=== PATIENT | female | born 1955 | race Caucasian/White ===

== ENCOUNTER 2016-11-13 19:15 | Emergency (ER) | payer BC ==
[2016-11-13] MEDS ORDERED: KETOROLAC TROMETHAMINE INJ 30 MG/ML VIAL IM ONE (19:39)
[2016-11-13 19:41] VITALS: TEMP 98.2; O2SAT 100
[2016-11-13] MEDS ORDERED: HYDROcodone 7.5MG/APAP 325MG 1 EA TAB PO ONE (19:57)
--- NOTE | 2016-11-13 20:01 | ED.PDOC ---
History of Present Illness - General Chief Complaint: Upper Extremity Injury Stated Complaint: rt shoulder pain Time Seen by Provider: 11/13/16 19:38 Source: patient Exam Limitations: no limitations - History of Present Illness Initial Comments: The patient is a 61-year-old female with a fall from standing after she tripped just immediately prior to arrival. She tried to catch herself with her right arm but failed to. She is not having any pain in her hand, wrist or elbow. All the pain is in the proximal humerus and shoulder. There is no pain over the superior aspect of the shoulder or the clavicle or the scapula. No pain in the neck. She did not hit her head. She is neurovascularly preserved distally. I see no gross deformity and can feel no gross deformity. No other injuries. No previous injuries to that side. Timing/Duration: momentarily Severity: severe Improving Factors: immobilization Worsening Factors: movement Associated Symptoms: denies symptoms Allergies/Adverse Reactions: Allergies Tramadol Allergy (Verified 11/15/14 10:36) Rash Home Medications: Ambulatory Orders Lisinopril 10 mg PO DAILY 11/15/14 Naproxen Sodium [Naproxen Sodium ER] 500 mg PO BID PRN #60 tab 12/02/15 Rosuvastatin Calcium [Crestor] 20 mg PO DAILY 12/02/15 Hhqbirzgaczlo-Ujxo-Tjjutjcjlo [Fioricet] 1 ea PO Q8H PRN #21 tab 11/13/16 Review of Systems - Review of Systems Constitutional: States: no symptoms reported EENTM: States: no symptoms reported Respiratory: States: no symptoms reported Cardiology: States: no symptoms reported Gastrointestinal/Abdominal: States: no symptoms reported Genitourinary: States: no symptoms reported Musculoskeletal: States: see HPI Skin: States: no symptoms reported Neurological: States: no symptoms reported Endocrine: States: no symptoms reported All other Systems: No Change from Baseline Past Medical History (General) - Patient Medical History Hx Seizures: No Hx Stroke: No Hx Dementia: No Hx Asthma: No Hx of COPD: No Hx Cardiac Disorders: No Hx Congestive Heart Failure: No Hx Pacemaker: No Hx Hypertension: Yes Hx Thyroid Disease: No Hx Diabetes: No Hx Gastroesophageal Reflux: No Hx Renal Disease: No Hx Cancer: No Hx of HIV: No Hx Hepatitis C: No Hx MRSA: No Surgical History: cholecystectomy - Vaccination History Hx Tetanus, Diphtheria Vaccination: No Hx Influenza Vaccination: No Hx Pneumococcal Vaccination: No - Social History Hx Tobacco Use: No Hx Alcohol Use: No Hx Substance Use: No Hx Substance Use Treatment: No Hx Depression: No - Female History Patient is a Female of Child Bearing Age (10 -59 yrs old): No Family Medical History - Family History Mother Family History: Unknown Physical Exam - Physical Exam General Appearance: Alert, Obvious distress Eye Exam: bilateral normal Ears, Nose, Throat: normal ENT inspection Neck: full range of motion, supple Respiratory: chest non-tender, no respiratory distress, no accessory muscle use Cardiovascular/Chest: normal peripheral pulses, no edema Peripheral Pulses: radial,right: 2+, radial,left: 2+ Rectal Exam: deferred Back Exam: normal inspection, no CVA tenderness Extremity: no pedal edema, no calf tenderness, normal capillary refill, other - see history of present illness. No lacerations. Neurologic: no motor/sensory deficits, alert, normal mood/affect, oriented x 3 Skin Exam: normal color Comments: Vital Signs - 24 hr 11/13/16 19:37 Temperature 98.2 F Pulse Rate [ 76 Right] Respiratory 16 Rate Blood Pressure 170/102 [Left Arm] O2 Sat by Pulse 100 Oximetry Progress - Progress Progress: 11/13/16 20:01 the patient is a 61-year-old female presenting after a fall with a proximal minimally displaced right proximal humerus fracture. The patient will be placed in a shoulder immobilizer. She needs to follow up with an orthopedist of her choice earlier this week. She will be written for Fioricet for as needed use for pain control. Ibuprofen may help as well. ER warnings were given for any acute worsening. Departure - Departure Clinical Impression: Fracture, humerus, anatomical neck Qualifiers: Encounter type: initial encounter Fracture type: closed Laterality: right Qualifier Code: (S42.291A) Other displaced fracture of upper end of right humerus, initial encounter for closed fracture Disposition: Discharge to Home or Self Care Departure Forms: ED Discharge - Pt. Copy, Patient Portal Self Enrollment Diet: regular diet Activity: no pushing/pulling with affected limb Referrals: KATHLEEN VARGHESE [Primary Care Provider] - 1-2 Weeks Prescriptions: Yiqqfobgjzlhg-Jgzp-Wxxwpvxjry [Fioricet] 1 ea PO Q8H PRN #21 tab PRN Reason: Pain Home Medications: Ambulatory Orders Lisinopril 10 mg PO DAILY 11/15/14 Naproxen Sodium [Naproxen Sodium ER] 500 mg PO BID PRN #60 tab 12/02/15 Rosuvastatin Calcium [Crestor] 20 mg PO DAILY 12/02/15 Twojdgqehglcm-Hhiy-Vhrnziodpx [Fioricet] 1 ea PO Q8H PRN #21 tab 11/13/16 Additional Instructions: the patient is a 61-year-old female presenting after a fall with a proximal minimally displaced right proximal humerus fracture. The patient will be placed in a shoulder immobilizer. She needs to follow up with an orthopedist of her choice earlier this week. She will be written for Fioricet for as needed use for pain control. Ibuprofen may help as well. ER warnings were given for any acute worsening.
[2016-11-13 20:46] VITALS: BP 148/89
--- NOTE | 2016-11-14 15:00 | RAD ---
EXAM DESCRIPTION: Two views of the right shoulder CLINICAL HISTORY: 61 years, Female, pain after fall. COMPARISON: None. FINDINGS: There is a comminuted fracture of the proximal right humerus with fracture lines extending through the lesser tuberosity as well as the greater tuberosity. There is a minimally displaced fracture fragment projecting medially. There is no other acute fracture or dislocation. The glenohumeral articulation is intact. The acromioclavicular joint is normal in appearance. Limited evaluation of the scapula and clavicle demonstrate no gross abnormalities. The chest is grossly normal in appearance. IMPRESSION: Comminuted minimally displaced fracture of the proximal humerus at the level of the tuberosities. Electronically signed by: Nasreen Nj MD 11/13/2016 8:04 PM CHIEF ENGINEER RESEARCH
--- NOTE | 2016-11-14 15:00 | RAD ---
EXAM DESCRIPTION: Right humerus-2 views. CLINICAL HISTORY: 61 years Female pain after fall. COMPARISON: None. TECHNIQUE: Two views of the right humerus. FINDINGS: There are comminuted fractures of the right humerus neck. The shaft of the humerus otherwise appears intact. IMPRESSION: Fractures of the right humerus neck. Electronically signed by: Freddie Chase MD 11/13/2016 8:05 PM TRAVEL OT
== END 2016-11-13 20:46 | disposition home or self-care (01) ==
LOC: ER 19:15
DX: S42.291A Other displaced fracture of upper end of right humerus, initial encounter for closed fracture (principal); I10 Essential (primary) hypertension; Z88.6 Allergy status to analgesic agent; Z79.899 Other long term (current) drug therapy; W01.0XXA Fall on same level from slipping, tripping and stumbling without subsequent striking against object, initial encounter
CPT/HCPCS: 73030; 73060; J1885

== ENCOUNTER → 2016-11-17 | Outpatient (CLI) | payer BC ==
--- NOTE | 2016-11-17 12:28 | RAD ---
Two-view right humerus. Indication: FX Comparison: November 13, 2016. Impression: Previously noted proximal right humerus fracture demonstrates stable alignment without significant new callus formation or periostitis. No new fracture. Electronically signed by: Bolivar Luke MD 11/17/2016 12:27 PM PRIVATE WEALTH ADVISOR
== END ==
LOC: RAD 08:13
PROVIDERS: ATTEND Orthopaedic Surgery
DX: S42.201A Unspecified fracture of upper end of right humerus, initial encounter for closed fracture (principal)

== ENCOUNTER → 2016-11-24 | Outpatient (CLI) | payer BC ==
--- NOTE | 2016-11-24 11:03 | RAD ---
EXAM DESCRIPTION: Humerus,Right CLINICAL HISTORY: CLOSED FX OF HUMERUS COMPARISON: November 17, 2016 IMPRESSION: 2 views of the right humerus again demonstrate a comminuted fracture of the proximal right humerus without significant change in alignment. There is mild indistinctness of the fracture fragments without significant callus formation or bridging bony union at this time. No dislocation is seen. Electronically signed by: Abe Ballard MD 11/24/2016 11:02 AM MEDICAL TECHNICIAN
== END | disposition home or self-care (01) ==
LOC: RAD 08:58
PROVIDERS: ATTEND Orthopaedic Surgery
DX: S42.301D Unspecified fracture of shaft of humerus, right arm, subsequent encounter for fracture with routine healing (principal)

== ENCOUNTER → 2016-12-05 | Outpatient (CLI) | payer BC ==
--- NOTE | 2016-12-05 09:27 | RAD ---
EXAM DESCRIPTION: Humerus,Right CLINICAL HISTORY: 61 yearsFemale, CLOSED FX OF HUMERUS COMPARISON: 11/24/2016 IMPRESSION: 2 views of the right humerus again demonstrate a comminuted oblique fracture in the proximal aspect of the right humerus involving the surgical neck. Alignment appears not significantly changed compared to the prior exam. Only minimal callus formation is present at the fracture site without evidence of union at this time. There is no new fracture. Advanced acromioclavicular osteoarthritis. Suspected emphysema. Electronically signed by: Derrick Caro MD 12/05/2016 9:26 AM CDT
== END ==
LOC: RAD 08:00
PROVIDERS: ATTEND Orthopaedic Surgery
DX: S42.301D Unspecified fracture of shaft of humerus, right arm, subsequent encounter for fracture with routine healing (principal); M19.011 Primary osteoarthritis, right shoulder

== ENCOUNTER → 2016-12-16 | Outpatient (CLI) | payer BC ==
--- NOTE | 2016-12-16 15:50 | RAD ---
EXAM DESCRIPTION: Humerus,Right CLINICAL HISTORY: 61 years, Female, CLOSED FX OF HUMERUS COMPARISON: December 05, 2016 FINDINGS: Comminuted fracture to the neck of the right humerus which appears healing with some callus formation and actually appears in near anatomic position with no change and the displacement which is very little if any since prior study. Right humerus unremarkable. IMPRESSION: Healing stable minimal to nondisplaced comminuted fracture to the right humeral neck Electronically signed by: Marbin Burgess MD 12/16/2016 3:50 PM CDT
== END | disposition home or self-care (01) ==
LOC: RAD 07:59
PROVIDERS: ATTEND Orthopaedic Surgery
DX: S42.301D Unspecified fracture of shaft of humerus, right arm, subsequent encounter for fracture with routine healing (principal)

== ENCOUNTER → 2016-12-30 | Outpatient (CLI) | payer BC ==
--- NOTE | 2016-12-31 06:17 | RAD ---
Procedure: XR HUMERUS Exam Date: 12/30/2016 12:00 AM CDT Ordering Provider: JENNA CHAIDEZ Clinical Indication: CLOSED FX OF RT HUMERUS Comparison: 12/16/2016 Findings: Stable appearance of a healing nondisplaced comminuted right humeral neck fracture. There is been mild callus formation seen both medially and laterally at the majority of the fracture cleft remains. Otherwise, no new fracture or subluxation. No radiopaque foreign body or subcutaneous emphysema. Impression: 1. Mild interval healing of right humeral neck fracture. Electronically signed by: Sandro Clark MD 12/31/2016 6:16 AM CDT
== END | disposition home or self-care (01) ==
LOC: RAD 07:38
PROVIDERS: ATTEND Orthopaedic Surgery
DX: S42.301D Unspecified fracture of shaft of humerus, right arm, subsequent encounter for fracture with routine healing (principal)

== ENCOUNTER → 2017-01-20 | Outpatient (CLI) | payer BC ==
--- NOTE | 2017-01-22 08:21 | RAD ---
Humerus x-ray CLINICAL INDICATION: Fracture COMPARISON: Humerus x-ray 12/30/2016 TECHNIQUE: AP and lateral view of the right humerus was performed. FINDINGS: Redemonstrated is minimally displaced surgical neck fracture of the right humerus with mild interval healing. IMPRESSION: Mild progressive interval healing of right humeral neck fracture. Electronically signed by: José Luis Acosta MD 01/22/2017 8:21 AM CDT
== END ==
LOC: RAD 08:00
PROVIDERS: ATTEND Orthopaedic Surgery
DX: S42.301D Unspecified fracture of shaft of humerus, right arm, subsequent encounter for fracture with routine healing (principal)

== ENCOUNTER → 2017-02-10 | Outpatient (CLI) | payer BC ==
--- NOTE | 2017-02-12 09:28 | RAD ---
EXAM DESCRIPTION: Right humerus, 2 view CLINICAL HISTORY: CLOSED FX OF HUMERUS FINDINGS/ IMPRESSION: Comparison 01/20/2017 Stable appearance surgical neck right humerus related to fracture. Osteopenia. No acute fracture or other acute bony abnormality Electronically signed by: Jono Edmonds MD 02/12/2017 9:28 AM CDT Workstation: [id number]
== END | disposition home or self-care (01) ==
LOC: RAD 07:41
PROVIDERS: ATTEND Orthopaedic Surgery
DX: S42.301D Unspecified fracture of shaft of humerus, right arm, subsequent encounter for fracture with routine healing (principal)

== ENCOUNTER → 2017-07-17 | Outpatient (CLI) | payer BC ==
--- NOTE | 2017-07-21 11:29 | MAM ---
EXAM DESCRIPTION: 3D Screening BILATERAL : Digital Mammography. CLINICAL HISTORY: 61 years Female SCREENING . No complaints. Mother and sister with breast cancer. Left breast biopsy. Postmenopausal. No HRT. COMPARISON: 2-D digital screening bilateral study 07/23/2015. No prior reports available. TECHNIQUE: Bilateral CC and MLO projection full-field images, 3-D tomosynthesis digital mammographic technique. Also bilateral synthesized CC/ MLO full-field images. CAD not utilized. FINDINGS: The breast parenchymal density pattern is: Scattered areas of fibroglandular density. No skin thickening or nipple retraction bilateral vascular calcifications. Bilateral axillary lymph nodes. Bilateral coarse calcifications and microcalcifications. 2 groups of heterogeneous microcalcifications at the 1200 and 100 clock position of the middle third of the right breast. These calcifications were not as well seen on the prior study. Intramammary lymph node in the lower inner quadrant anterior third right breast. No focal, stellate mass or density, focal asymmetry , and no suspicious microcalcifications left breast. IMPRESSION: BI-RADS CATEGORY: 0 - INCOMPLETE- Need additional imaging evaluation. FOLLOW-UP: Recall for additional imaging: Digital orthogonal magnification images of the right breast with full-field 3-D tomosynthesis LM projection right breast. Written communication concerning the IMPRESSION and Follow-up, will be mailed to the patient and referring health care provider. Electronically signed by: Mario Ospina MD 07/21/2017 11:28 AM CDT
== END | disposition home or self-care (01) ==
LOC: MAMMO 13:05
PROVIDERS: ATTEND Surgery
DX: Z12.31 Encounter for screening mammogram for malignant neoplasm of breast (principal)
CPT/HCPCS: 77063; G0202

== ENCOUNTER → 2017-08-14 | Outpatient (CLI) | payer BC ==
--- NOTE | 2017-08-15 09:20 | MAM ---
EXAM DESCRIPTION: 3D Diagnostic, Right CLINICAL HISTORY: 61 yearsFemaleABNORMAL MAMMO. Groups of microcalcifications in the right breast. COMPARISON: 3-D digital screening bilateral study 07/17/2017. 2-D Diagnostic digital bilateral study 07/23/2015.. TECHNIQUE: 2-D digital anterior right breast magnification images in the CC and LM projections. 3-D right breast full-field tomosynthesis images in the LM projection. CAD was utilized on the 2-D images. FINDINGS: Calcifications are noted at the 100 clock position of the anterior third of the right breast. This is a small group of heterogeneous and mostly round calcifications of varying sizes. A group of microcalcifications involving a similar volume of tissue is seen on the 2014 study but the calcifications are more distinct on this study. There are also coarse calcifications and vascular calcifications in the right breast. No associated mass density or focal asymmetry. IMPRESSION: BI-RADS CATEGORY: 3 - PROBABLY BENIGN. Management: Short interval (6-month) follow-up surveillance digital mammography right breast. The FINDINGS and follow-up were discussed in person with the patient. Written communication explaining the IMPRESSION and followup will be mailed to the patient and referring care provider. Electronically signed by: Mario Ospina MD 08/15/2017 9:19 AM SOUND EFFECTS PERSON
== END ==
LOC: MAMMO 10:35
PROVIDERS: ATTEND Emergency Medicine
DX: R92.8 Other abnormal and inconclusive findings on diagnostic imaging of breast (principal)
CPT/HCPCS: G0206; G0279

== ENCOUNTER 2018-01-16 13:45 | Emergency (ER) | payer BC ==
[2018-01-16] MEDS ORDERED: ASPIRIN TABLET 325 MG TAB PO ONE (13:52)
[2018-01-16] MEDS ORDERED: SODIUM CHLORIDE 0.9% (FLUSH) 10 ML SYG IV PRN (13:52)
[2018-01-16] MEDS ORDERED: NITROGLYCERIN 0.4 MG 25 EA TAB SL ONE ×2 (13:52→14:39)
--- NOTE | 2018-01-16 13:52 | ED.PDOC ---
History of Present Illness - General Chief Complaint: Cardiovascular Problem Stated Complaint: chest pain Time Seen by Provider: 01/16/18 13:50 Source: patient Exam Limitations: no limitations - History of Present Illness Initial Comments: Gilda Pearson 62 y/o female stated that she had chest pressure twice lasting for few minutes then went away she took aspirin yesterday then today.This morning on waking up felt dizzy but went to work then on arrival at work felt again stating chest cramping which gradually got worse,non radiating ,no diaphoresis, No nausea/vomiting had also been having exertional dyspnea for the last one month went to see her Md was given oral steroid since she had also been coughing at that time but no exertional chest pains.No chronic cough.Has HBP, high cholesterol Timing/Duration: 24 hours Severity: moderate Location: central Activities at Onset: activity Prior Chest Pain/Cardiac Workup: no prior chest pain, no prior cardiac workup Improving Factors: nothing Worsening Factors: nothing Nitro Today/Relief: no nitro taken today Aspirin Treatment Today: provided at home Associated Symptoms: other - see hpi Allergies/Adverse Reactions: Allergies Tramadol Allergy (Verified 11/15/14 10:36) Rash Home Medications: Ambulatory Orders Nitroglycerin 0.4 mg Tab [Nitrostat] 0.4 mg SL .Q5M PRN #1 bttl 01/16/18 Review of Systems - Review of Systems Constitutional: States: no symptoms reported EENTM: States: no symptoms reported Respiratory: States: short of breath - on exertion Cardiology: States: see HPI Gastrointestinal/Abdominal: States: no symptoms reported Genitourinary: States: no symptoms reported Musculoskeletal: States: no symptoms reported Skin: States: no symptoms reported Neurological: States: no symptoms reported All other Systems: Reviewed and Negative, No Change from Baseline Past Medical History (General) - Patient Medical History Hx Seizures: No Hx Stroke: No Hx Dementia: No Hx Asthma: No Hx of COPD: No Hx Cardiac Disorders: No Hx Congestive Heart Failure: No Hx Pacemaker: No Hx Hypertension: Yes Hx Thyroid Disease: No Hx Diabetes: No Hx Gastroesophageal Reflux: No Hx Renal Disease: No Hx Cancer: No Hx of HIV: No Hx Hepatitis C: No Hx MRSA: No Hx Other PMH: Yes - elevated cholesterol Surgical History: cholecystectomy, other - knee - Vaccination History Hx Tetanus, Diphtheria Vaccination: No Hx Influenza Vaccination: No Hx Pneumococcal Vaccination: No - Social History Hx Tobacco Use: No Hx Alcohol Use: No Hx Substance Use: No Hx Substance Use Treatment: No Hx Depression: No Hx Physical Abuse: No Hx Emotional Abuse: No - Activities of Daily Living Grooming Ability: Independent Eating (Feeding) Ability: Independent Toileting Ability: Independent - Female History Patient is a Female of Child Bearing Age (10 -59 yrs old): Yes Patient : No Family Medical History - Family History Mother Family History: Unknown Hx Family Hypertension: Yes - mom Hx Family Diabetes: Yes - mom Hx Family Cancer: Yes - breast-mom,sister;sisters-kidney,thyroid,lymphoma Physical Exam - Physical Exam General Appearance: Alert, Comfortable, No apparent distress Eyes, Ears, Nose, Throat Exam: normal ENT inspection Neck: non-tender, supple Respiratory: chest non-tender, lungs clear, normal breath sounds Cardiovascular/Chest: normal peripheral pulses, regular rate, rhythm, no murmur Peripheral Pulses: radial,right: 2+, radial,left: 2+ Gastrointestinal/Abdominal: normal bowel sounds, non tender, soft, no organomegaly Extremity: normal inspection, no pedal edema, no calf tenderness Neurologic: alert, oriented x 3 Skin Exam: normal color, warm/dry Progress - Progress Progress: 01/16/18 16:16 Vital Signs - 8 hr 01/16/18 01/16/18 01/16/18 13:47 14:04 14:17 Temperature 97.9 F Pulse Rate [ 81 81 74 Apical] Respiratory 20 20 20 Rate Blood Pressure 161/98 157/71 131/85 [Left Arm] O2 Sat by Pulse 98 95 96 Oximetry 01/16/18 01/16/18 01/16/18 14:23 14:43 15:04 Temperature Pulse Rate [ 83 90 75 Apical] Respiratory 20 20 20 Rate Blood Pressure 132/83 148/78 144/90 [Left Arm] O2 Sat by Pulse 96 95 96 Oximetry 01/16/18 16:17 Discuss test with patient no acute myocardial injury on lab test and EKG recommended hospital obs but wants to go home and follow up with primary Md in am;symptoms getting less. 01/16/18 16:26 - Results/Orders Results/Orders: Vital Signs - 8 hr 01/16/18 01/16/18 01/16/18 13:47 14:04 14:17 Temperature 97.9 F Pulse Rate [ 81 81 74 Apical] Respiratory 20 20 20 Rate Blood Pressure 161/98 157/71 131/85 [Left Arm] O2 Sat by Pulse 98 95 96 Oximetry 01/16/18 01/16/18 01/16/18 14:23 14:43 15:04 Temperature Pulse Rate [ 83 90 75 Apical] Respiratory 20 20 20 Rate Blood Pressure 132/83 148/78 144/90 [Left Arm] O2 Sat by Pulse 96 95 96 Oximetry 01/16/18 13:52 Telemetry .ONCE Sodium Chloride 0.9% (Flush) [Saline Flush Syringe] 10 ml IV PRN PRN EKG Stat Pulse Ox Stat 01/16/18 14:17 URINALYSIS Stat Laboratory Results - last 24 hr 01/16/18 01/16/18 01/16/18 14:00 14:00 15:06 WBC 6.4 RBC 4.02 L Hgb 12.6 Hct 37.4 MCV 93.1 MCH 31.3 H MCHC 33.6 RDW 13.2 Plt Count 208 MPV 9.6 Absolute Neuts (auto) 3.70 Absolute Lymphs (auto) 2.00 Absolute Monos (auto) 0.60 Absolute Eos (auto) 0.10 Absolute Basos (auto) 0.00 Neutrophils % 57.3 Lymphocytes % 31.4 Monocytes % 9.6 H Eosinophils % 1.1 Basophils % 0.6 PT 11.3 INR 0.970 PTT (SP) 32.7 D-Dimer, Quantitative < 200 Sodium 140 Potassium 3.9 Chloride 105 Carbon Dioxide 26 Anion Gap 12.9 BUN 13 Creatinine 0.50 L BUN/Creatinine Ratio 26.0 H Random Glucose 98 Serum Osmolality 279.5 Calcium 9.5 Magnesium 1.8 Total Bilirubin 0.4 Direct Bilirubin < 0.1 Indirect Bilirubin 0.3 AST 22 ALT 22 Alkaline Phosphatase 68 Creatine Kinase 72 CK-MB (CK-2) 2.6 CK-MB (CK-2) % Not Reportable Troponin I < 0.02 < 0.02 B-Natriuretic Peptide 141.0 H Serum Total Protein 7.3 Albumin 4.0 - EKG/XRAY/CT EKG: Sinus, no ST T wave changes Comments: HR 73,LAE XRAY: chest - cardiac shadow /lung normal;scoliosis ,spondylolysthesis Departure - Departure Clinical Impression: Chest tightness or pressure Time of Disposition: 16:20 Disposition: Discharge to Home or Self Care Condition: Fair Departure Forms: ED Discharge - Pt. Copy, Patient Portal Self Enrollment Instructions: DI for Chest Pain Referrals: KATHLEEN VARGHESE [Primary Care Provider] - 1-2 Weeks Prescriptions: Nitroglycerin 0.4 mg Tab [Nitrostat] 0.4 mg SL .Q5M PRN #1 bttl PRN Reason: Chest Pain Home Medications: Ambulatory Orders Nitroglycerin 0.4 mg Tab [Nitrostat] 0.4 mg SL .Q5M PRN #1 bttl 01/16/18 Additional Instructions: Continue with Aspirin 81 mg by mouth daily;RETURN TO [facility] if symptoms worsens ;Need to follow up with primary MD 17 Jan 2018
--- NOTE | 2018-01-16 14:20 | RAD ---
EXAM DESCRIPTION: Chest,1 View CLINICAL HISTORY: pain COMPARISON: June 06, 2016 IMPRESSION: Single AP portable upright view of the chest shows cardiac silhouette and pulmonary vasculature to be within normal limits. Lungs are normally aerated and clear. No obvious pleural effusion or pneumothorax is seen. Scoliosis of the thoracic spine is seen with multilevel moderate spondylitic changes. Electronically signed by: Abe Ballard MD 01/16/2018 2:18 PM CDT
[2018-01-16] MEDS ORDERED: ACETAMINOPHEN 325 MG TAB PO ONE (14:39)
[2018-01-16 16:42] VITALS: BP 137/83; TEMP 98; O2SAT 97
== END 2018-01-16 16:30 | disposition home or self-care (01) ==
LOC: ER 13:45
DX: R07.89 Other chest pain (principal); I10 Essential (primary) hypertension

== ENCOUNTER → 2018-02-26 | Outpatient (CLI) | payer BC ==
--- NOTE | 2018-02-26 11:30 | MAM ---
EXAM DESCRIPTION: 3D Diagnostic, Right: Digital Mammography CLINICAL HISTORY: 62 yearsFemale6 [place] F/U group of microcalcifications in the upper inner quadrant of the right breast.. COMPARISON: Diagnostic 3-D Elsy synthesis mammography 08/14/2017. Bilateral 3-D tomosynthesis screening mammography 07/17/2017.. Reports from prior examinations also reviewed. TECHNIQUE: Right breast CC LM MLO projection full-field images, 3-D tomosynthesis digital mammographic technique. 2-D spot magnification anterior right breast, CC and LM projections. CAD not utilized. FINDINGS: The breast parenchymal density pattern is: Scattered areas of fibroglandular density. No skin thickening or nipple retraction group of heterogeneous microcalcifications at the 1230 clock position of the middle third of the right breast 4.7 cm from the nipple. No definitive mass. Stable since the prior study. Also solitary microcalcifications and coarse calcifications and vascular calcifications. Stable since the prior diagnostic study. IMPRESSION: BI-RADS CATEGORY: 3 - PROBABLY BENIGN. Management: Short interval follow-up right breast diagnostic imaging with continued 12 month routine mammographic follow-up of left breast in June 2018. Written communication explaining the IMPRESSION and follow-up will be mailed to the patient and referring care provider Electronically signed by: Mario Ospina MD 02/26/2018 11:28 AM CDT
== END ==
LOC: MAMMO 10:06
PROVIDERS: ATTEND Emergency Medicine
DX: R92.8 Other abnormal and inconclusive findings on diagnostic imaging of breast (principal)
CPT/HCPCS: 77065; G0279

== ENCOUNTER → 2018-07-09 | Outpatient (CLI) | payer BC ==
--- NOTE | 2018-07-09 17:00 | US ---
EXAM DESCRIPTION: Breast,Right: Ultrasound CLINICAL HISTORY: 62 yearsFemaleABNORMAL MAMMO 6 MONTH FOLLOW UP COMPARISON: Digital diagnostic tomosynthesis bilateral breast on the same visit. Diagnostic digital right breast tomosynthesis 08/14/2017. Prior reports were reviewed. TECHNIQUE: Transcutaneous scanning of the right breast utilizing cohen-scale and Doppler modes. Scanning performed by the door serviceman and Dr. Ospina. FINDINGS: Scanning performed of the upper right breast with emphasis on the 10:00 to 1:30 sectors in the anterior middle thirds. Hypoechoic circumscribed mass with echogenic center at the 10:00 position 5 cm from the nipple measuring 5.6 x 4.4 mm but no significant vascularity. Parallel orientation and no significant posterior features. Hypoechoic mass 4 cm from the nipple at the 1200 clock position with parallel orientation, and no posterior features. Nonvascular. Possibly a cyst or small lymph node. Hypoechoic mass versus complex cyst at the 1:30 clock position 3 3 cm from the nipple. Parallel orientation no posterior features circumscribed margins, nonvascular. No definitive calcifications are seen. IMPRESSION: 1. Bi-Rads Category 3: Probably Benign Findings. 2. Please refer to bilateral diagnostic digital breast tomosynthesis performed today and report. The FINDINGS and the FOLLOW-UP plan were reviewed in person with the patient after the examination. Written communication explaining the IMPRESSION and FOLLOW-UP will be mailed to the patient and referring care provider. Electronically signed by: Mario Ospina MD 07/09/2018 4:58 PM CDT
--- NOTE | 2018-07-09 17:23 | MAM ---
EXAM DESCRIPTION: 3D Diagnostic, Bilateral: Digital Mammography CLINICAL HISTORY: 62 yearsFemaleABN MAMMO . Soreness of right breast on her arm. Right breast calcifications. No personal history of breast cancer. Mother and sister with breast cancer. Remote family history of breast cancer. Childbirth. Postmenopausal 11 years. No HRT. Prior cyst aspiration left breast.. Lifetime risk of developing breast cancer (Tyrer-Cuzick model) percentage is 29.7. COMPARISON: Bilateral screening digital breast tomosynthesis 07/17/2017. . TECHNIQUE: Bilateral CC LM MLO projection full-field images, digital mammographic tomosynthesis technique. Special digital spot magnification images right breast CC and MLO projections. CAD not utilized. FINDINGS: The breast parenchymal density pattern is: Scattered areas of fibroglandular density. No skin thickening or nipple retraction again noted are 2 groups of heterogeneous microcalcifications at the 1201 100 clock position of the anterior-middle third of the right breast approximately 5 cm and 6 cm from the nipple. These calcifications appear stable since the prior study. There are also solitary microcalcifications and coarse calcifications bilaterally and bilateral axillary lymph nodes. No new focal, stellate mass or density, focal asymmetry bilaterally. No suspicious microcalcifications in the left breast. ULTRASOUND: Scanning performed of the upper right breast with emphasis on the 10:00 to 1:30 sectors in the anterior middle thirds. Hypoechoic circumscribed mass with echogenic center at the 10:00 position 5 cm from the nipple measuring 5.6 x 4.4 mm but no significant vascularity. Parallel orientation and no significant posterior features. Hypoechoic mass 4 cm from the nipple at the 1200 clock position with parallel orientation, and no posterior features. Nonvascular. Possibly a cyst or small lymph node. Hypoechoic mass versus complex cyst at the 1:30 clock position 3 3 cm from the nipple. Parallel orientation no posterior features circumscribed margins, nonvascular. No definitive calcifications are seen. IMPRESSION: BI-RADS CATEGORY: 3 - PROBABLY BENIGN. Management: Short interval (6-month) follow-up ultrasound and continued 6 month mammographic surveillance right breast December 2018. Written communication explaining the IMPRESSION and follow-up will be mailed to the patient and referring care provider Electronically signed by: Mario Ospina MD 07/09/2018 5:22 PM CDT
== END ==
LOC: MAMMO 10:46
PROVIDERS: ATTEND Emergency Medicine
DX: R92.8 Other abnormal and inconclusive findings on diagnostic imaging of breast (principal)
CPT/HCPCS: 76641; 77066; G0279

== ENCOUNTER 2019-01-21 05:26 | Day surgery (SDC) | payer BC ==
[2019-01-21] MEDS ORDERED: TROP 1%/CYCLOPEN 1%/PHENYL 2% DROPS ONE (06:02)
[2019-01-21] MEDS ORDERED: PROPARACAINE 0.5% OPHTH SOL 15 ML BTTL ONE (06:02)
[2019-01-21] MEDS ORDERED: MOXIFLOXACIN HCL (OPHTH) 1 DROP DROPS ONE (06:02)
== END 2019-01-21 07:35 | disposition home or self-care (01) ==
LOC: AMB 05:26
PROVIDERS: ATTEND Ophthalmology
DX: H26.491 Other secondary cataract, right eye (principal)

== ENCOUNTER → 2019-01-31 | Outpatient (CLI) | payer BC | LOC: LAB.O 16:02 | PROVIDERS: ATTEND Emergency Medicine | DX: K52.9 Noninfective gastroenteritis and colitis, unspecified (principal) ==

== ENCOUNTER 2019-03-19 09:30 | Emergency (ER) | payer BC ==
[2019-03-19 09:45] VITALS: O2SAT 96
[2019-03-19] MEDS ORDERED: DEXAMETHASONE INJ 4 MG/ML VIAL IM ONE (09:50)
[2019-03-19] MEDS ORDERED: IPRATROPIUM/ALBUTEROL 3 ML VIAL NEB ONE (09:50)
[2019-03-19] MEDS ORDERED: predniSONE 20 MG TAB PO ONE (09:50)
--- NOTE | 2019-03-19 09:50 | ED.PDOC ---
History of Present Illness - General Chief Complaint: Respiratory Problem Stated Complaint: cough,fever,SHEPARD,body aches Time Seen by Provider: 03/19/19 09:41 Source: patient Exam Limitations: no limitations - History of Present Illness Comments: Gilda Pearson 63 y/o female stated that she had non productive cough for the last 2 days expose to family members that had same symptoms stating they had the flu.Has body aches ,no chills. Timing/Duration: other - 2 days Cough Quality/Degree: dry cough Possible Cause: occasional episodes Improving Factors: nothing Worsening Factors: nothing Associated Symptoms: other - see hpi Respiratory Risk Factors: no cause identified Allergies/Adverse Reactions: Allergies Tramadol Allergy (Verified 11/15/14 10:36) Rash Home Medications: Ambulatory Orders Albuterol Inhaler [Ventolin Hfa Inhaler] 108 mcg IN Q6HRS PRN #1 inh 03/19/19 Losartan Potassium 50 mg PO DAILY 03/19/19 Metoprolol Tartrate 50 mg PO DAILY 03/19/19 Montelukast [Singulair] 10 mg PO DAILY 03/19/19 Sulfa/Trimeth 800/160 (Ds) Tab [Bactrim DS] 1 tablet PO BID 10 Days #20 tab 03/19/19 Trazodone HCl 100 mg PO BEDTIME 03/19/19 predniSONE 20 mg PO DAILY 7 Days #7 tab 03/19/19 Review of Systems - Review of Systems Constitutional: States: no symptoms reported EENTM: States: no symptoms reported Respiratory: States: see HPI, cough Cardiology: States: no symptoms reported Gastrointestinal/Abdominal: States: no symptoms reported Genitourinary: States: no symptoms reported Musculoskeletal: States: no symptoms reported Skin: States: no symptoms reported All other Systems: Reviewed and Negative, No Change from Baseline Past Medical History (General) - Patient Medical History Hx Seizures: No Hx Stroke: No Hx Dementia: No Hx Asthma: No Hx of COPD: No Hx Cardiac Disorders: No Hx Congestive Heart Failure: No Hx Pacemaker: No Hx Hypertension: Yes Hx Thyroid Disease: No Hx Diabetes: No Hx Gastroesophageal Reflux: No Hx Renal Disease: No Hx Cancer: No Hx of HIV: No Hx Hepatitis C: No Hx MRSA: No Surgical History: cholecystectomy, other - knee - Vaccination History Hx Tetanus, Diphtheria Vaccination: No Hx Influenza Vaccination: No Hx Pneumococcal Vaccination: No - Social History Hx Tobacco Use: No Hx Alcohol Use: No Hx Substance Use: No Hx Substance Use Treatment: No Hx Depression: No Hx Physical Abuse: No Hx Emotional Abuse: No - Female History Patient : No Family Medical History - Family History Mother Family History: Unknown Hx Family Hypertension: Yes - mom Hx Family Diabetes: Yes - mom Hx Family Cancer: Yes - breast-mom,sister;sisters-kidney,thyroid,lymphoma Physical Exam - Physical Exam General Appearance: Alert, Comfortable, No apparent distress Eye Exam: bilateral normal ENT Exam: normal ENT inspection, hearing grossly normal, TMs normal, pharynx normal Neck: non-tender, supple, normal inspection, trachea midline Respiratory: chest non-tender, no respiratory distress, other - coarse BS Cardiovascular/Chest: normal peripheral pulses, regular rate, rhythm, no murmur Gastrointestinal/Abdominal: normal bowel sounds, non tender, soft Extremity: no pedal edema, no calf tenderness Neurologic: alert, oriented x 3 Skin Exam: normal color, warm/dry Progress - Progress Progress: 03/19/19 09:55 Vital Signs - 8 hr 03/19/19 03/19/19 09:42 09:52 Temperature 98.9 F Pulse Rate [ 85 Left Brachial] Respiratory 20 20 Rate Blood Pressure 125/79 [Left Arm] O2 Sat by Pulse 96 Oximetry - Results/Orders Results/Orders: 03/19/19 09:51 SVN/Updraft Therapy .ONCE 03/19/19 10:31 BNP [B-TYPE NATRIURETIC PEPTIDE/BNP] Stat CARDIAC PANEL,ER Stat HEPATIC FUNCTION PANEL Stat 03/20/19 09:00 [facility] Daily Laboratory Results - last 24 hr 03/19/19 10:31 WBC 6.9 RBC 4.13 L Hgb 13.2 Hct 39.1 MCV 94.5 MCH 31.9 H MCHC 33.7 RDW 13.5 Plt Count 186 MPV 9.0 Absolute Neuts (auto) 4.30 Absolute Lymphs (auto) 1.30 Absolute Monos (auto) 1.20 H Absolute Eos (auto) 0.00 Absolute Basos (auto) 0.00 Neutrophils % 62.6 Lymphocytes % 19.6 L Monocytes % 17.0 H Eosinophils % 0.3 L Basophils % 0.5 PT 10.3 INR 1.03 PTT (SP) 25.3 Sodium 137 Potassium 3.1 L Chloride 103 Carbon Dioxide 24 Anion Gap 13.1 BUN 10 Creatinine 0.70 BUN/Creatinine Ratio 14.3 Random Glucose 109 H Serum Osmolality 273.4 L Calcium 8.9 Magnesium 1.9 Total Bilirubin 0.5 Direct Bilirubin < 0.1 Indirect Bilirubin 0.4 AST 23 ALT 21 Alkaline Phosphatase 74 Creatine Kinase 62 CK-MB (CK-2) 1.5 Troponin I < 0.02 B-Natriuretic Peptide 64.0 Serum Total Protein 7.9 Albumin 3.7 Discuss all test results with patient;Need follow up with primary Md - EKG/XRAY/CT XRAY: chest - cardiomegaly Departure - Departure Clinical Impression: Cough in adult, Reactive airway disease that is not asthma, Idiopathic cardiomegaly Time of Disposition: 11:37 Disposition: Discharge to Home or Self Care Condition: Fair Departure Forms: ED Discharge - Pt. Copy, Patient Portal Self Enrollment Instructions: Dextromethorphan, Cough in Adults Referrals: KATHLEEN VARGHESE [Primary Care Provider] - 1-2 Weeks Prescriptions: Albuterol Inhaler [Ventolin Hfa Inhaler] 108 mcg IN Q6HRS PRN #1 inh PRN Reason: Cough predniSONE 20 mg PO DAILY 7 Days #7 tab Sulfa/Trimeth 800/160 (Ds) Tab [Bactrim DS] 1 tablet PO BID 10 Days #20 tab Home Medications: Ambulatory Orders Albuterol Inhaler [Ventolin Hfa Inhaler] 108 mcg IN Q6HRS PRN #1 inh 03/19/19 Losartan Potassium 50 mg PO DAILY 03/19/19 Metoprolol Tartrate 50 mg PO DAILY 03/19/19 Montelukast [Singulair] 10 mg PO DAILY 03/19/19 Sulfa/Trimeth 800/160 (Ds) Tab [Bactrim DS] 1 tablet PO BID 10 Days #20 tab 03/19/19 Trazodone HCl 100 mg PO BEDTIME 03/19/19 predniSONE 20 mg PO DAILY 7 Days #7 tab 03/19/19 Additional Instructions: Follow up with your primary Md for recheck 25 March 2019;Return to ER as needed continue with all home medications
--- NOTE | 2019-03-19 10:04 | RAD ---
EXAM DESCRIPTION: Chest,1 View CLINICAL HISTORY: 63 years Female, cough COMPARISON: Previous study January 16, 2018 TECHNIQUE: AP portable chest. FINDINGS: Heart size is large with prominent central pulmonary vascularity. Increased interstitial markings could be infiltrate or asymmetric edema in the left perihilar and left lower lobe regions. Follow-up recommended. No pulmonary mass or worrisome nodule. No pneumothorax or pleural effusion. Scoliotic curvature of the T-spine. IMPRESSION: Infiltrate or asymmetric edema in the left mid and lower lung zones. Large heart with centrally increased pulmonary vascularity. Electronically signed by: Juve Padilla MD 03/19/2019 10:02 AM CDT
[2019-03-19 12:01] VITALS: BP 141/84; TEMP 98.6
== END 2019-03-19 11:59 | disposition home or self-care (01) ==
LOC: ER 09:30
DX: R06.89 Other abnormalities of breathing (principal); R05 Cough; I51.7 Cardiomegaly; I10 Essential (primary) hypertension; Z79.899 Other long term (current) drug therapy; Z88.5 Allergy status to narcotic agent
CPT/HCPCS: 36415; 71045; 80048; 80076; 82550; 82553; 83880; 84484; 85025; 85610; 85730; 87502; 94640; J1100; J7512; J7620

== ENCOUNTER 2019-04-19 23:57 | Emergency (ER) | payer BC ==
--- NOTE | 2019-04-20 00:38 | ED.PDOC ---
History of Present Illness - General Time Seen by Provider: 04/20/19 00:34 Source: patient, RN notes reviewed Additional Information: 63 YEAR OLD HERE FOR EVALUATION OF CHEST PAIN HER PAIN IS LIKE PRESSURE NON RADIATING NO DIAPHORESIS NO SHORTNESS OF BREATH SHE HAS HYPERTENSION AND STATES HER BLOOD PRESSURE WAS HIGH TOOK A CLONIDINE PRIOR TO COMING HERE SHE HAS HAD A CARDIAC CATHETERIZATION BY DR DONALD 2 YEARS AGO AND HE HAD TOLD HER IT IS NORMAL AT THAT TIME AND NO INTERVENTION RECOMMENDED EXCEPT LIFE STYLE MODIFICATION AND MEDICAL MANAGEMENT - History of Present Illness Timing/Duration: 1 hour Severity/Quality: mild Location: substernal Chest Pain Radiation: no radiation Activities at Onset: none Prior Chest Pain/Cardiac Workup: cardiac cath Improving Factors: nothing Worsening Factors: nothing Associated Symptoms: denies symptoms Allergies/Adverse Reactions: Allergies Tramadol Allergy (Verified 11/15/14 10:36) Rash Home Medications: Ambulatory Orders Albuterol Inhaler [Ventolin Hfa Inhaler] 108 mcg IN Q6HRS PRN #1 inh 03/19/19 Losartan Potassium 50 mg PO DAILY 03/19/19 Metoprolol Tartrate 50 mg PO DAILY 03/19/19 Montelukast [Singulair] 10 mg PO DAILY 03/19/19 Sulfa/Trimeth 800/160 (Ds) Tab [Bactrim DS] 1 tablet PO BID 10 Days #20 tab 03/19/19 Trazodone HCl 100 mg PO BEDTIME 03/19/19 predniSONE 20 mg PO DAILY 7 Days #7 tab 03/19/19 Review of Systems - Review of Systems Constitutional: States: no symptoms reported EENTM: States: no symptoms reported Respiratory: States: no symptoms reported Cardiology: States: see HPI Gastrointestinal/Abdominal: States: no symptoms reported Genitourinary: States: no symptoms reported Musculoskeletal: States: no symptoms reported Skin: States: no symptoms reported Neurological: States: no symptoms reported Endocrine: States: no symptoms reported Past Medical History (General) - Patient Medical History Hx Seizures: No Hx Stroke: No Hx Dementia: No Hx Asthma: No Hx of COPD: No Hx Cardiac Disorders: No Hx Congestive Heart Failure: No Hx Pacemaker: No Hx Hypertension: Yes Hx Thyroid Disease: No Hx Diabetes: No Hx Gastroesophageal Reflux: No Hx Renal Disease: No Hx Cancer: No Hx of HIV: No Hx Hepatitis C: No Hx MRSA: No Surgical History: cholecystectomy, other - Vaccination History Hx Tetanus, Diphtheria Vaccination: No Hx Influenza Vaccination: No Hx Pneumococcal Vaccination: No Immunizations Up to Date: No - Social History Hx Tobacco Use: Yes Hx Alcohol Use: No Hx Substance Use: No Hx Substance Use Treatment: No Hx Depression: No Feels Threatened In Home Enviroment: No Hx Physical Abuse: No Hx Emotional Abuse: No Hx Suspected Abuse: No - Activities of Daily Living Hospice Agency (if applicable):: None - Female History Patient is a Female of Child Bearing Age (10 -59 yrs old): No Patient : No Family Medical History - Family History Mother Family History: Unknown Hx Family Hypertension: Yes - mom Hx Family Diabetes: Yes - mom Hx Family Cancer: Yes - breast-mom,sister;sisters-kidney,thyroid,lymphoma Physical Exam - Physical Exam General Appearance: Alert, Comfortable Eyes, Ears, Nose, Throat Exam: PERRL/EOMI, normal ENT inspection, TMs normal, pharynx normal Neck: non-tender, full range of motion, supple, normal inspection Respiratory: chest non-tender, lungs clear, normal breath sounds, no respiratory distress Cardiovascular/Chest: normal peripheral pulses, regular rate, rhythm, no edema, no gallop, no JVD, no murmur Extremity: normal range of motion, non-tender, normal inspection, no pedal edema Neurologic: build master II-XII nml as tested, no motor/sensory deficits, alert, normal mood/affect, oriented x 3 Skin Exam: normal color, warm/dry Lymphatic: no adenopathy Progress - EKG/XRAY/CT EKG: Sinus, no ST T wave changes Comments: NORMAL NORMAL AXIS NO ST T CHANGES NO ACUTE ISCHEMIA OR INFARCTION NOTED Departure - Departure Clinical Impression: Atypical chest pain, Hypertension Time of Disposition: 01:21 Disposition: Discharge to Home or Self Care Condition: Good Diet: low fat, low cholesterol Referrals: KATHLEEN VARGHESE [Primary Care Provider] - 1-2 Weeks Home Medications: Ambulatory Orders Albuterol Inhaler [Ventolin Hfa Inhaler] 108 mcg IN Q6HRS PRN #1 inh 03/19/19 Losartan Potassium 50 mg PO DAILY 03/19/19 Metoprolol Tartrate 50 mg PO DAILY 03/19/19 Montelukast [Singulair] 10 mg PO DAILY 03/19/19 Sulfa/Trimeth 800/160 (Ds) Tab [Bactrim DS] 1 tablet PO BID 10 Days #20 tab 03/19/19 Trazodone HCl 100 mg PO BEDTIME 03/19/19 predniSONE 20 mg PO DAILY 7 Days #7 tab 03/19/19
--- NOTE | 2019-04-20 01:02 | RAD ---
EXAM DESCRIPTION: Chest,1 View CLINICAL HISTORY: 63 years Female chest pain COMPARISON: March 19, 2019. TECHNIQUE: AP view of the chest was obtained. FINDINGS: Cardiac silhouette is enlarged. Dorsal kyphosis seen. Central vessels are mildly increased. Decreasing airspace opacity left lung base. No abnormal airspace opacity on right. No effusions bilaterally. No pneumothorax.. No consolidation. No pneumothorax. IMPRESSION: Decreasing infiltrate and atelectatic change left lung base. Electronically signed by: Anita Alfredo MD 04/20/2019 1:01 AM CDT
[2019-04-20 01:39] VITALS: BP 110/66; TEMP 97.4; O2SAT 95
== END 2019-04-20 01:30 | disposition home or self-care (01) ==
LOC: ER 23:57
DX: R07.89 Other chest pain (principal); I10 Essential (primary) hypertension; Z87.891 Personal history of nicotine dependence; Z79.899 Other long term (current) drug therapy; Z88.5 Allergy status to narcotic agent

== ENCOUNTER 2019-08-09 23:30 | Emergency (ER) | payer BC ==
[2019-08-09] MEDS ORDERED: ONDANSETRON INJ 4 MG/2 ML VIAL IV ONE (23:45)
[2019-08-09] MEDS ORDERED: MORPHINE SULFATE INJ 10 MG/ML VIAL IV ONE (23:45)
--- NOTE | 2019-08-09 23:52 | ED.PDOC ---
History of Present Illness - General Chief Complaint: Chest Pain/MD Stated Complaint: chest pain since noon Time Seen by Provider: 08/09/19 23:40 Source: patient, RN notes reviewed, Vital Signs reviewed, family, old records Exam Limitations: no limitations - History of Present Illness Initial Comments: 63 yo female presents to ED with spouse for 1 day h/o chest pressure and lindsey vated BP. States she usually takes her BP med in the morning, but she forgot to take it this morning. About 1100 AM she developed chest tightness that persisted throughout the day. She took her BP med when she got home this evening. Tonight, she continued to have chest tightness and took her BP and it was in the 170's so came to ED for evaluation. States she has had similar episodes of CP for the past 2 years. Reports she had a heart cath 2 years ago and pt states is was normal. Also had an echo 2 months ago that she states was normal. Pain is not associated with exertion or movement. Timing/Duration: constant Severity: moderate Improving Factors: nothing Worsening Factors: nothing Allergies/Adverse Reactions: Allergies Tramadol Allergy (Verified 11/15/14 10:36) Rash Home Medications: Ambulatory Orders Albuterol Inhaler [Ventolin Hfa Inhaler] 108 mcg IN Q6HRS PRN #1 inh 03/19/19 Losartan Potassium 50 mg PO DAILY 03/19/19 Metoprolol Tartrate 50 mg PO DAILY 03/19/19 Montelukast [Singulair] 10 mg PO DAILY 03/19/19 Sulfa/Trimeth 800/160 (Ds) Tab [Bactrim DS] 1 tablet PO BID 10 Days #20 tab 03/19/19 Trazodone HCl 100 mg PO BEDTIME 03/19/19 predniSONE 20 mg PO DAILY 7 Days #7 tab 03/19/19 Review of Systems - Review of Systems Constitutional: Denies: chills, fever, weakness EENTM: Denies: ear pain, nose congestion, throat pain Respiratory: States: short of breath. Denies: cough, orthopnea, stridor Cardiology: States: chest pain. Denies: edema, palpitations, syncope Gastrointestinal/Abdominal: States: nausea. Denies: abdominal pain, constipation, vomiting Genitourinary: Denies: frequency, hematuria Musculoskeletal: Denies: back pain, muscle pain Skin: States: no symptoms reported Neurological: States: no symptoms reported Endocrine: States: no symptoms reported Past Medical History (General) - Patient Medical History Hx Seizures: No Hx Stroke: No Hx Dementia: No Hx Asthma: No Hx of COPD: No Hx Cardiac Disorders: No Hx Congestive Heart Failure: No Hx Pacemaker: No Hx Hypertension: Yes Hx Thyroid Disease: No Hx Diabetes: No Hx Gastroesophageal Reflux: No Hx Renal Disease: No Hx Cancer: No Hx of HIV: No Hx Hepatitis C: No Hx MRSA: No - Vaccination History Hx Tetanus, Diphtheria Vaccination: No Hx Influenza Vaccination: No Hx Pneumococcal Vaccination: No - Social History Hx Tobacco Use: Yes Hx Alcohol Use: No Hx Substance Use: No Hx Substance Use Treatment: No Hx Depression: No Hx Physical Abuse: No Hx Emotional Abuse: No Hx Suspected Abuse: No - Female History Patient : No Family Medical History - Family History Mother Family History: Unknown Hx Family Hypertension: Yes - mom Hx Family Diabetes: Yes - mom Hx Family Cancer: Yes - breast-mom,sister;sisters-kidney,thyroid,lymphoma Physical Exam - Physical Exam General Appearance: Alert, Anxious, No apparent distress Ears, Nose, Throat: normal ENT inspection Neck: non-tender, full range of motion, supple Respiratory: chest non-tender, lungs clear, normal breath sounds, no respiratory distress, no accessory muscle use Cardiovascular/Chest: regular rate, rhythm, no edema, no murmur Gastrointestinal/Abdominal: non tender, soft, no pulsatile mass Back Exam: normal inspection, no CVA tenderness Extremity: normal range of motion, non-tender, normal inspection, no calf tenderness Neurologic: no motor/sensory deficits, alert, normal mood/affect Progress - Progress Progress: 08/10/19 00:40 Pt presents to ED with 12 hour h/o CP and elevated BP. EKG, labs and CXR reassuring. Given Morphine for pain and pain and elevated BP resolved. She has had normal heart cath 2 years ago. No sign of ACS, PE, PTX, dissection at this time. Feels comfortable going home and will f/u with PCP and her client associate for continued evaluation. SRP given. - Results/Orders Results/Orders: EKG-- NSR, rate 88, nml intervals, nonspecific ST abnormality EXAM DESCRIPTION: Chest,1 View CLINICAL HISTORY: 63 years Female, short of breath COMPARISON: Chest x-ray April 20, 2019. FINDINGS: No consolidation. No pneumothorax. No significant pleural effusion. Cardiac silhouette appears mildly enlarged. Degenerative changes of the spine demonstrated with mild curvature. IMPRESSION: No acute findings. 08/09/19 23:45 EKG .ONCE Laboratory Results - last 24 hr 08/09/19 08/09/19 08/09/19 23:38 23:38 23:38 WBC 8.5 RBC 4.23 Hgb 13.3 Hct 40.1 MCV 94.8 MCH 31.4 H MCHC 33.1 RDW 13.1 Plt Count 263 MPV 9.1 Absolute Neuts (auto) 4.70 Absolute Lymphs (auto) 2.50 Absolute Monos (auto) 1.00 H Absolute Eos (auto) 0.20 Absolute Basos (auto) 0.10 Neutrophils % 55.4 Lymphocytes % 29.2 Monocytes % 11.7 H Eosinophils % 2.7 Basophils % 1.0 Sodium 139 Potassium 3.2 L Chloride 98 L Carbon Dioxide 27 Anion Gap 17.2 BUN 18 Creatinine 0.61 BUN/Creatinine Ratio 29.5 H Random Glucose 114 H Serum Osmolality 280.3 Calcium 9.3 Total Bilirubin 0.4 AST 25 ALT 29 Alkaline Phosphatase 78 Troponin I < 0.02 Serum Total Protein 7.9 Albumin 4.0 Globulin 3.9 H Albumin/Globulin Ratio 1.0 L Lipase 52 H Departure - Departure Clinical Impression: Chest pain Qualifiers: Chest pain type: unspecified Qualified Code(s): R07.9 - Chest pain, unspecified Hypertension Qualifiers: Hypertension type: essential hypertension Qualified Code(s): I10 - Essential (primary) hypertension Time of Disposition: 00:39 Disposition: Discharge to Home or Self Care Condition: Good Departure Forms: ED Discharge - Pt. Copy, Patient Portal Self Enrollment Instructions: DI for Chest Pain Diet: resume usual diet Activity: increase activity as tolerated Referrals: KATHLEEN VARGHESE [Primary Care Provider] - 1-2 Days Home Medications: Ambulatory Orders Albuterol Inhaler [Ventolin Hfa Inhaler] 108 mcg IN Q6HRS PRN #1 inh 03/19/19 Losartan Potassium 50 mg PO DAILY 03/19/19 Metoprolol Tartrate 50 mg PO DAILY 03/19/19 Montelukast [Singulair] 10 mg PO DAILY 03/19/19 Sulfa/Trimeth 800/160 (Ds) Tab [Bactrim DS] 1 tablet PO BID 10 Days #20 tab 03/19/19 Trazodone HCl 100 mg PO BEDTIME 03/19/19 predniSONE 20 mg PO DAILY 7 Days #7 tab 03/19/19 Comments: Follow up with your client associate within 1 week for continued evaluation.
[2019-08-09 23:54] VITALS: TEMP 98.4
--- NOTE | 2019-08-10 00:26 | RAD ---
EXAM DESCRIPTION: Chest,1 View CLINICAL HISTORY: 63 years Female, short of breath COMPARISON: Chest x-ray April 20, 2019. FINDINGS: No consolidation. No pneumothorax. No significant pleural effusion. Cardiac silhouette appears mildly enlarged. Degenerative changes of the spine demonstrated with mild curvature. IMPRESSION: No acute findings. Electronically signed by: Juan Luis Lindquist MD 08/10/2019 12:24 AM [employer]
[2019-08-10 00:34] VITALS: BP 136/80; O2SAT 95
== END 2019-08-10 00:43 | disposition home or self-care (01) ==
LOC: ER 23:30
DX: R07.9 Chest pain, unspecified (principal); I10 Essential (primary) hypertension; Z79.899 Other long term (current) drug therapy; Z87.891 Personal history of nicotine dependence
CPT/HCPCS: 71045; 80053; 83690; 84484; 85025; 93005; J2270; J2405